=== PATIENT | male | born 1965 | race Caucasian/White ===

== ENCOUNTER 2017-08-17 10:25 | Emergency (ER) | payer BC, MEDICAID, OTHER ==
--- NOTE | 2017-08-17 11:46 | EDM.PDOC ---
ED HPI GENERAL MEDICAL PROBLEM - General Chief Complaint: Eye Problems Stated Complaint: RT EYE Time Seen by Provider: 08/17/17 10:25 Source of Information: Reports: Patient History Limitations: Reports: No Limitations - History of Present Illness INITIAL COMMENTS - FREE TEXT/NARRATIVE: 52 y.o.w.m in prev healthy condition, came to the ED thsi am because he has right eye discomfort since last night when he cleaned his truck out. He attemted to flush it and he saw some blood in his right eye. He does not remember a direct trauma to his right eye. No N/V/D or any other acute medical issues. BP 138/89 Pulse 85 Temp 98.4 Pulse ox 94% RR 16. Onset Date: 08/16/17 Onset Time: 19:00 Duration: Hour(s): Location: Reports: Face Quality: Reports: Ache, Burning, Dull Severity: Mild Improves with: Reports: Rest Worsens with: Reports: Movement Context: Reports: Other (FB right eye.) Associated Symptoms: Reports: No Other Symptoms - Related Data Allergies Allergy/AdvReac Type Severity Reaction Status Date / Time ciprofloxacin [From Cipro] Allergy Cannot Verified 08/17/17 17:33 Remember ciprofloxacin HCl Allergy Cannot Verified 08/17/17 17:33 [From Cipro] Remember Home Meds: Home Meds Citalopram Hydrobromide [Celexa] 20 mg PO DAILY #30 tablet 04/26/14 [Rx] .Vitamin D 1.25 cap PO Q14D 08/17/17 [History] Amitriptyline [Elavil] 100 - 150 mg PO BEDTIME 08/17/17 [History] Gabapentin [Neurontin] 300 mg PO ASDIRECTED 08/17/17 [History] Gemfibrozil 600 mg PO BIDMEALS 08/17/17 [History] Hydrochlorothiazide 25 mg PO DAILY 08/17/17 [History] LORazepam 0.5 mg PO BID PRN 08/17/17 [History] Methocarbamol [Robaxin] 500 - 1,000 mg PO TID PRN 08/17/17 [History] QUEtiapine [SEROquel XR] 50 mg PO QID PRN 08/17/17 [History] QUEtiapine [SEROquel] 100 mg PO ASDIRECTED 08/17/17 [History] amLODIPine Besylate [Amlodipine Besylate] 10 mg PO DAILY 08/17/17 [History] atorvaSTATin [Lipitor] 40 mg PO DAILY 08/17/17 [History] busPIRone HCl [busPIRone] 30 mg PO DAILY 08/17/17 [History] hydrOXYzine Pamoate [Hydroxyzine Pamoate] 25 mg PO QID PRN 08/17/17 [History] Social & Family History - Tobacco Use Smoking Status *Q: Current Every Day Smoker Years of Tobacco use: 30 Packs/Tins Daily: 1 Used Tobacco, but Quit: No Second Hand Smoke Exposure: Yes - Alcohol Use Days Per Week of Alcohol Use: 0 - Recreational Drug Use Recreational Drug Use: No ED ROS ENT - Review of Systems Review Of Systems: See Below Constitutional: Reports: No Symptoms HEENT: Reports: Eye Pain (right eye) Respiratory: Reports: No Symptoms Cardiovascular: Reports: No Symptoms Endocrine: Reports: No Symptoms GI/Abdominal: Reports: No Symptoms : Reports: No Symptoms Musculoskeletal: Reports: No Symptoms Skin: Reports: No Symptoms Neurological: Reports: No Symptoms Psychiatric: Reports: No Symptoms Hematologic/Lymphatic: Reports: No Symptoms Immunologic: Reports: No Symptoms ED EXAM, ENT - Physical Exam Exam: See Below Exam Limited By: No Limitations General Appearance: Alert, WD/WN, Mild Distress, Obese Eye Exam: Right Eye: Other (Poss FB right eye. ), Bilateral Eye: EOMI Ears: Normal External Exam, Normal Canal Nose: Normal Inspection, Normal Mucousa, No Blood Mouth/Throat: Normal Inspection, Normal Gums Head: Atraumatic, Normocephalic Neck: Normal Inspection, Supple, Non-Tender, Full Range of Motion Respiratory/Chest: No Respiratory Distress, Lungs Clear Cardiovascular: Normal Peripheral Pulses, Regular Rate, Rhythm, No Edema GI/Abdominal: Normal Bowel Sounds, Soft (Male) Exam: Deferred Rectal (Males) Exam: Deferred Back: Normal Inspection, Full Range of Motion Extremities: Normal Inspection, Normal Range of Motion, Non-Tender Neurological: Alert, Oriented, CN II-XII Intact, Normal Cognition, Normal Gait, No Motor/Sensory Deficits Psychiatric: Normal Affect, Normal Mood Skin: Warm, Dry, Intact, Normal Color, No Rash Lymphatic: No Adenopathy Course - Vital Signs Text/Narrative:: 52 y.o.w.m in prev healthy condition, came to the ED thsi am because he has right eye discomfort since last night when he cleaned his truck out. He attemted to flush it and he saw some blood in his right eye. He does not remember a direct trauma to his right eye. No N/V/D or any other acute medical issues. BP 138/89 Pulse 85 Temp 98.4 Pulse ox 94% RR 16. PE: Right eye pain Procedure: Tetracaine [address] the right eye, a[place] blue light did not show a corneal abrasion, no FB was seen. However, there was a small abrasion at his right lower eyelid. Impression: right eye pain, can not R/O FB. minor abrasion right lower eye lid, interior Reexam: Pain subsided after tetracaine, pain came back. Ophthalmology was consulted and the pt was advised to F/U right away at the eye clinic Plan: D/C with instruction . Last Recorded V/S: Last Vital Signs Temp 36.9 C 08/17/17 11:00 Pulse 85 08/17/17 11:00 Resp 16 08/17/17 11:00 BP 138/89 08/17/17 11:00 Pulse Ox 94 L 08/17/17 11:00 Departure - Departure Time of Disposition: 12:00 Disposition: Home, Self-Care 01 Condition: Good Clinical Impression: FB eye - Discharge Information Referrals: Damion Gao MD [Primary Care Provider] - Forms: ED Department Discharge Additional Instructions: Please go straight to [facility] at [address] tel . Please come back should any complication occur.
== END 2017-08-17 11:55 | disposition home or self-care (01) ==
LOC: FB.ED 10:25
DX: S00.211A Abrasion of right eyelid and periocular area, initial encounter (principal); Z88.1 Allergy status to other antibiotic agents; Z79.899 Other long term (current) drug therapy; F17.210 Nicotine dependence, cigarettes, uncomplicated; X58.XXXA Exposure to other specified factors, initial encounter
CPT/HCPCS: 99283

== ENCOUNTER 2022-06-07 23:43 | Emergency (ER) | payer MEDICAID ==
[2022-06-07] MEDS ORDERED: Albuterol 8 GM Inhaler INH ONE (23:44)
[2022-06-08 00:46] LABS: ESTIMATED GFR 70 mL/min (>60)
[2022-06-08] MEDS ORDERED: Ondansetron 4 MG Tab.DIS PO ONE (01:52)
[2022-06-08] MEDS ORDERED: Albuterol/Ipratropium 3.0-0.5 MG/3 ML Neb Soln NEB ONE (01:52)
== END 2022-06-08 02:25 | disposition home or self-care (01) ==
LOC: FB.ED 23:43
DX: J20.9 Acute bronchitis, unspecified (principal); Z88.1 Allergy status to other antibiotic agents; Z79.899 Other long term (current) drug therapy
CPT/HCPCS: 36415; 71045; 80053; 83880; 84484; 85025; 85379; 93005; 94640; 99285; A9270; Q0162; 93010; 99283; J7620

== ENCOUNTER 2022-08-05 13:48 | Emergency (ER) | payer MEDICAID ==
[2022-08-05] MEDS: Nitroglycerin 0.4 MG Tab.SL SL PRN ×3 (14:11→14:21)
[2022-08-05 14:23] LABS: ESTIMATED GFR 70 mL/min (>60)
[2022-08-05] MEDS ORDERED: Aspirin 81 MG Tab.Chew PO ONE (14:32)
[2022-08-05] MEDS ORDERED: Ondansetron 4 MG/2 ML SDV IVPUSH ONE ×2 (14:40→15:50)
[2022-08-05] MEDS ORDERED: Ketorolac 30 MG/ML SDV IVPUSH STA (14:41)
[2022-08-05] MEDS: Sodium Chloride 0.9% 10 ML Syringe FLUSH PRN ×2 (14:53→15:01)
[2022-08-05] MEDS ORDERED: Heparin Sodium 5,000 Units/ML Vial IVPUSH ONE (15:11)
[2022-08-05] MEDS ORDERED: Heparin Sodium/0.45% NaCl 500 ML IV SCH (15:12)
[2022-08-05] MEDS ORDERED: Morphine 4 MG/ML VIAL IVPUSH ONE (15:37)
[2022-08-05] MEDS ORDERED: Iopamidol 755 Mg/ML 100 ML Bottle IV ONE (15:43)
== END 2022-08-05 16:05 ==
LOC: FB.ED 13:48
DX: J44.9 Chronic obstructive pulmonary disease, unspecified (principal); I71.40 Abdominal aortic aneurysm, without rupture, unspecified; I10 Essential (primary) hypertension; E78.5 Hyperlipidemia, unspecified; E78.00 Pure hypercholesterolemia, unspecified; E66.9 Obesity, unspecified; Z87.891 Personal history of nicotine dependence; Z88.1 Allergy status to other antibiotic agents; Z79.899 Other long term (current) drug therapy
CPT/HCPCS: 36415; 71045; 71275; 80053; 83880; 84484; 85025; 85379; 85610; 85730; 93005; 93010; 96365; 96375; 96376; 99285; 99285-25; A9270-GY; J1644; J1885; J2270; J2405; J3490; Q9967

== ENCOUNTER 2022-08-13 09:25 | Emergency (ER) | payer MEDICAID ==
[2022-08-13 10:21] LABS: ESTIMATED GFR 87 mL/min (>60)
[2022-08-13] MEDS ORDERED: Metoprolol Succinate 25 MG Tab.ER PO ONE (13:31)
[2022-08-13] MEDS ORDERED: ARIPiprazole 5 MG Tab PO ONE (16:48)
[2022-08-13] MEDS ORDERED: amLODIPine 5 MG Tab PO ONE (16:49)
[2022-08-13] MEDS ORDERED: Gabapentin 300 MG Cap PO ONE (16:49)
== END 2022-08-13 22:38 | disposition home or self-care (01) ==
LOC: FB.ED 09:25
DX: R41.0 Disorientation, unspecified (principal); E78.00 Pure hypercholesterolemia, unspecified; I10 Essential (primary) hypertension; E66.9 Obesity, unspecified; Z68.30 Body mass index [BMI] 30.0-30.9, adult; Z88.1 Allergy status to other antibiotic agents; Z79.899 Other long term (current) drug therapy
CPT/HCPCS: 36415; 70450; 71046; 80053; 80307; 83735; 83880; 84484; 85025; 93005; 99285; A9270-GY

== ENCOUNTER 2022-08-14 00:08 | Emergency (ER) | payer MEDICAID ==
[2022-08-14] MEDS ORDERED: LORazepam 0.5 MG Tab PO ONE (00:10)
[2022-08-14] MEDS ORDERED: OLANZapine 5 MG Tab PO ONE (00:10)
[2022-08-14] MEDS ORDERED: OLANZapine 5 MG Tab ONE (02:14)
== END 2022-08-14 09:35 ==
LOC: FB.ED 00:08
DX: F41.9 Anxiety disorder, unspecified (principal); E78.00 Pure hypercholesterolemia, unspecified; I10 Essential (primary) hypertension; E66.9 Obesity, unspecified; Z68.30 Body mass index [BMI] 30.0-30.9, adult; Z88.1 Allergy status to other antibiotic agents; Z79.899 Other long term (current) drug therapy
CPT/HCPCS: 99285; A9270

== ENCOUNTER 2023-06-20 08:02 | Inpatient (IN) | payer MEDICAID ==
[2023-06-20] MEDS ORDERED: Albuterol 6.7 GM Inhaler INH PRN (14:09)
[2023-06-20] MEDS ORDERED: Naloxone 4 MG Nasal Spray NAS PRN (14:09)
[2023-06-20] MEDS ORDERED: Polyethylene Glycol 3350 Powder 17 GM Packet PO PRN (14:09)
[2023-06-20] MEDS ORDERED: Nitroglycerin 0.4 MG Tab.SL SL PRN (14:09)
[2023-06-20] MEDS ORDERED: Sennosides/Docusate Sodium 50-8.6 MG Tab PO PRN (14:52)
[2023-06-20] MEDS ORDERED: Lidocaine 4% 1 each Patch TOP PRN (14:57)
[2023-06-20] MEDS: oxyCODONE 5 MG Tab PO PRN ×3 (15:00→21:07)
[2023-06-20] MEDS ORDERED: Lidocaine 4% 1 each Patch TOP SCH (15:00)
[2023-06-20] MEDS: Baclofen 10 MG Tab PO SCH ×2 (15:44→20:53)
[2023-06-20] MEDS: Pregabalin 100 MG Cap PO SCH ×2 (15:44→21:07)
[2023-06-20] MEDS: Acetaminophen 500 MG Tab PO PRN (15:47)
[2023-06-20] MEDS: busPIRone 15 MG Tab PO SCH (20:51)
[2023-06-20] MEDS: Amoxicillin/Clavulanate K 875-125 MG Tab PO SCH (20:51)
[2023-06-20] MEDS: levETIRAcetam 500 MG Tab PO SCH (20:52)
[2023-06-20] MEDS: Metoprolol Tartrate 25 MG Tab PO SCH (20:54)
[2023-06-20] MEDS: Melatonin 3 MG Tab PO SCH (20:57)
[2023-06-20] MEDS: Famotidine 20 MG Tab PO SCH (20:58)
[2023-06-21] MEDS: oxyCODONE 5 MG Tab PO PRN ×2 (02:15→18:09)
[2023-06-21] MEDS: Pantoprazole 40 MG Tab.CR PO SCH (05:55)
[2023-06-21] MEDS: Pregabalin 100 MG Cap PO SCH ×3 (09:06→20:29)
[2023-06-21] MEDS: Cyanocobalamin (Vitamin B12) 1,000 MCG Tab PO SCH (09:45)
[2023-06-21] MEDS: Cholecalciferol (Vitamin D3) 5,000 UNIT Cap PO SCH (09:45)
[2023-06-21] MEDS: Vitamin B Complex with Vitamin C Tab PO SCH (09:45)
[2023-06-21] MEDS: Famotidine 20 MG Tab PO SCH ×2 (09:46→20:31)
[2023-06-21] MEDS: Enoxaparin 40 MG/0.4 ML Syringe SUBCUT SCH (09:46)
[2023-06-21] MEDS: Metoprolol Tartrate 25 MG Tab PO SCH ×2 (09:46→20:31)
[2023-06-21] MEDS: Baclofen 10 MG Tab PO SCH ×3 (09:47→20:29)
[2023-06-21] MEDS: Citalopram 20 MG Tab PO SCH (09:47)
[2023-06-21] MEDS: busPIRone 15 MG Tab PO SCH ×2 (09:47→20:30)
[2023-06-21] MEDS: levETIRAcetam 500 MG Tab PO SCH ×2 (09:47→20:29)
[2023-06-21] MEDS: atorvaSTATin 40 MG Tab PO SCH (09:47)
[2023-06-21] MEDS: Aspirin 81 MG Tab.Chew PO SCH (09:48)
[2023-06-21] MEDS: Amoxicillin/Clavulanate K 875-125 MG Tab PO SCH ×2 (09:48→20:30)
[2023-06-21] MEDS: Acetaminophen 500 MG Tab PO PRN (15:58)
[2023-06-21] MEDS: Melatonin 3 MG Tab PO SCH (20:30)
[2023-06-22] MEDS: oxyCODONE 5 MG Tab PO PRN ×3 (00:13→19:17)
[2023-06-22] MEDS: Acetaminophen 500 MG Tab PO PRN (03:23)
[2023-06-22] MEDS: Pantoprazole 40 MG Tab.CR PO SCH (05:51)
[2023-06-22] MEDS: Pregabalin 100 MG Cap PO SCH ×3 (08:52→21:20)
[2023-06-22] MEDS: Amoxicillin/Clavulanate K 875-125 MG Tab PO SCH ×2 (08:53→21:15)
[2023-06-22] MEDS: Aspirin 81 MG Tab.Chew PO SCH (08:53)
[2023-06-22] MEDS: busPIRone 15 MG Tab PO SCH ×2 (08:53→21:17)
[2023-06-22] MEDS: Citalopram 20 MG Tab PO SCH (08:53)
[2023-06-22] MEDS: Metoprolol Tartrate 25 MG Tab PO SCH ×2 (08:54→21:16)
[2023-06-22] MEDS: levETIRAcetam 500 MG Tab PO SCH ×2 (08:54→21:17)
[2023-06-22] MEDS: Baclofen 10 MG Tab PO SCH ×3 (08:54→21:17)
[2023-06-22] MEDS: atorvaSTATin 40 MG Tab PO SCH (08:54)
[2023-06-22] MEDS: Famotidine 20 MG Tab PO SCH ×2 (08:55→21:16)
[2023-06-22] MEDS: Vitamin B Complex with Vitamin C Tab PO SCH (08:55)
[2023-06-22] MEDS: Enoxaparin 40 MG/0.4 ML Syringe SUBCUT SCH (08:55)
[2023-06-22] MEDS: Cholecalciferol (Vitamin D3) 5,000 UNIT Cap PO SCH (08:56)
[2023-06-22] MEDS: Cyanocobalamin (Vitamin B12) 1,000 MCG Tab PO SCH (08:56)
[2023-06-22] MEDS: traZODone 50 MG Tab PO SCH (21:16)
[2023-06-22] MEDS: QUEtiapine 100 MG Tab PO SCH (21:16)
[2023-06-22] MEDS: Melatonin 3 MG Tab PO SCH (21:17)
[2023-06-23] MEDS: Pantoprazole 40 MG Tab.CR PO SCH (06:06)
[2023-06-23] MEDS: Pregabalin 100 MG Cap PO SCH ×3 (08:41→21:09)
[2023-06-23] MEDS: oxyCODONE 5 MG Tab PO PRN ×4 (08:41→21:08)
[2023-06-23] MEDS: Amoxicillin/Clavulanate K 875-125 MG Tab PO SCH ×2 (08:43→21:09)
[2023-06-23] MEDS: Metoprolol Tartrate 25 MG Tab PO SCH ×2 (08:43→21:13)
[2023-06-23] MEDS: Famotidine 20 MG Tab PO SCH ×2 (08:44→21:11)
[2023-06-23] MEDS: Cyanocobalamin (Vitamin B12) 1,000 MCG Tab PO SCH (08:44)
[2023-06-23] MEDS: Cholecalciferol (Vitamin D3) 5,000 UNIT Cap PO SCH (08:44)
[2023-06-23] MEDS: Citalopram 20 MG Tab PO SCH (08:45)
[2023-06-23] MEDS: atorvaSTATin 40 MG Tab PO SCH (08:45)
[2023-06-23] MEDS: levETIRAcetam 500 MG Tab PO SCH ×2 (08:45→21:10)
[2023-06-23] MEDS: Baclofen 10 MG Tab PO SCH ×3 (08:45→21:10)
[2023-06-23] MEDS: busPIRone 15 MG Tab PO SCH ×2 (08:45→21:10)
[2023-06-23] MEDS: Vitamin B Complex with Vitamin C Tab PO SCH (08:45)
[2023-06-23] MEDS: Aspirin 81 MG Tab.Chew PO SCH (08:46)
[2023-06-23] MEDS: Enoxaparin 40 MG/0.4 ML Syringe SUBCUT SCH (08:46)
[2023-06-23] MEDS: Melatonin 3 MG Tab PO SCH (21:11)
[2023-06-23] MEDS: QUEtiapine 100 MG Tab PO SCH (21:12)
[2023-06-23] MEDS: traZODone 50 MG Tab PO SCH (21:12)
[2023-06-24] MEDS: oxyCODONE 5 MG Tab PO PRN ×4 (02:18→19:35)
[2023-06-24] MEDS: Pantoprazole 40 MG Tab.CR PO SCH (06:54)
[2023-06-24] MEDS: Aspirin 81 MG Tab.Chew PO SCH (08:49)
[2023-06-24] MEDS: Pregabalin 100 MG Cap PO SCH ×3 (08:49→20:44)
[2023-06-24] MEDS: busPIRone 15 MG Tab PO SCH ×2 (08:50→20:44)
[2023-06-24] MEDS: levETIRAcetam 500 MG Tab PO SCH ×2 (08:50→20:44)
[2023-06-24] MEDS: Citalopram 20 MG Tab PO SCH (08:50)
[2023-06-24] MEDS: Metoprolol Tartrate 25 MG Tab PO SCH ×2 (08:51→20:45)
[2023-06-24] MEDS: Baclofen 10 MG Tab PO SCH ×3 (08:51→20:44)
[2023-06-24] MEDS: atorvaSTATin 40 MG Tab PO SCH (08:51)
[2023-06-24] MEDS: Enoxaparin 40 MG/0.4 ML Syringe SUBCUT SCH (08:52)
[2023-06-24] MEDS: Famotidine 20 MG Tab PO SCH ×2 (08:52→20:44)
[2023-06-24] MEDS: Vitamin B Complex with Vitamin C Tab PO SCH (08:53)
[2023-06-24] MEDS: Cholecalciferol (Vitamin D3) 5,000 UNIT Cap PO SCH (08:54)
[2023-06-24] MEDS: Cyanocobalamin (Vitamin B12) 1,000 MCG Tab PO SCH (08:54)
[2023-06-24] MEDS: Acetaminophen 500 MG Tab PO PRN (13:02)
[2023-06-24] MEDS: Melatonin 3 MG Tab PO SCH (20:44)
[2023-06-24] MEDS: traZODone 50 MG Tab PO SCH (20:44)
[2023-06-24] MEDS: QUEtiapine 100 MG Tab PO SCH (20:44)
[2023-06-25] MEDS: oxyCODONE 5 MG Tab PO PRN ×4 (00:43→18:14)
[2023-06-25] MEDS: Pantoprazole 40 MG Tab.CR PO SCH (06:54)
[2023-06-25] MEDS: Aspirin 81 MG Tab.Chew PO SCH (09:13)
[2023-06-25] MEDS: Pregabalin 100 MG Cap PO SCH ×3 (09:13→20:54)
[2023-06-25] MEDS: busPIRone 15 MG Tab PO SCH ×2 (09:14→20:56)
[2023-06-25] MEDS: Citalopram 20 MG Tab PO SCH (09:14)
[2023-06-25] MEDS: levETIRAcetam 500 MG Tab PO SCH ×2 (09:15→20:56)
[2023-06-25] MEDS: atorvaSTATin 40 MG Tab PO SCH (09:16)
[2023-06-25] MEDS: Baclofen 10 MG Tab PO SCH ×3 (09:16→20:55)
[2023-06-25] MEDS: Metoprolol Tartrate 25 MG Tab PO SCH ×2 (09:16→20:55)
[2023-06-25] MEDS: Famotidine 20 MG Tab PO SCH ×2 (09:17→20:55)
[2023-06-25] MEDS: Vitamin B Complex with Vitamin C Tab PO SCH (09:17)
[2023-06-25] MEDS: Enoxaparin 40 MG/0.4 ML Syringe SUBCUT SCH (09:17)
[2023-06-25] MEDS: Cyanocobalamin (Vitamin B12) 1,000 MCG Tab PO SCH (09:18)
[2023-06-25] MEDS: Cholecalciferol (Vitamin D3) 5,000 UNIT Cap PO SCH (09:18)
[2023-06-25] MEDS: QUEtiapine 100 MG Tab PO SCH (20:56)
[2023-06-25] MEDS: Melatonin 3 MG Tab PO SCH (20:56)
[2023-06-25] MEDS: traZODone 50 MG Tab PO SCH (20:56)
[2023-06-26] MEDS: oxyCODONE 5 MG Tab PO PRN ×3 (00:44→13:04)
[2023-06-26] MEDS: Pantoprazole 40 MG Tab.CR PO SCH (07:34)
[2023-06-26] MEDS: Pregabalin 100 MG Cap PO SCH ×3 (08:45→21:52)
[2023-06-26] MEDS: busPIRone 15 MG Tab PO SCH ×2 (08:45→21:52)
[2023-06-26] MEDS: Aspirin 81 MG Tab.Chew PO SCH (08:45)
[2023-06-26] MEDS: Baclofen 10 MG Tab PO SCH ×3 (08:46→21:54)
[2023-06-26] MEDS: Citalopram 20 MG Tab PO SCH (08:46)
[2023-06-26] MEDS: levETIRAcetam 500 MG Tab PO SCH ×2 (08:46→21:53)
[2023-06-26] MEDS: atorvaSTATin 40 MG Tab PO SCH (08:46)
[2023-06-26] MEDS: Metoprolol Tartrate 25 MG Tab PO SCH ×2 (08:51→21:53)
[2023-06-26] MEDS: Vitamin B Complex with Vitamin C Tab PO SCH (08:53)
[2023-06-26] MEDS: Cyanocobalamin (Vitamin B12) 1,000 MCG Tab PO SCH (08:53)
[2023-06-26] MEDS: Enoxaparin 40 MG/0.4 ML Syringe SUBCUT SCH (08:53)
[2023-06-26] MEDS: Famotidine 20 MG Tab PO SCH ×2 (08:53→21:52)
[2023-06-26] MEDS: Cholecalciferol (Vitamin D3) 5,000 UNIT Cap PO SCH (08:53)
[2023-06-26] MEDS: Acetaminophen 500 MG Tab PO PRN (15:24)
[2023-06-26] MEDS: Melatonin 3 MG Tab PO SCH (21:53)
[2023-06-26] MEDS: QUEtiapine 100 MG Tab PO SCH (21:54)
[2023-06-26] MEDS: traZODone 50 MG Tab PO SCH (21:54)
[2023-06-27] MEDS: Pantoprazole 40 MG Tab.CR PO SCH (06:59)
[2023-06-27] MEDS: Aspirin 81 MG Tab.Chew PO SCH (08:27)
[2023-06-27] MEDS: Citalopram 20 MG Tab PO SCH (08:28)
[2023-06-27] MEDS: Cyanocobalamin (Vitamin B12) 1,000 MCG Tab PO SCH (08:28)
[2023-06-27] MEDS: levETIRAcetam 500 MG Tab PO SCH ×2 (08:28→20:41)
[2023-06-27] MEDS: Famotidine 20 MG Tab PO SCH ×2 (08:28→20:42)
[2023-06-27] MEDS: busPIRone 15 MG Tab PO SCH ×2 (08:28→20:40)
[2023-06-27] MEDS: Cholecalciferol (Vitamin D3) 5,000 UNIT Cap PO SCH (08:28)
[2023-06-27] MEDS: atorvaSTATin 40 MG Tab PO SCH (08:29)
[2023-06-27] MEDS: Baclofen 10 MG Tab PO SCH ×3 (08:29→20:41)
[2023-06-27] MEDS: Vitamin B Complex with Vitamin C Tab PO SCH (08:33)
[2023-06-27] MEDS: Pregabalin 100 MG Cap PO SCH ×3 (08:33→20:46)
[2023-06-27] MEDS: Metoprolol Tartrate 25 MG Tab PO SCH ×2 (08:33→20:47)
[2023-06-27] MEDS: Enoxaparin 40 MG/0.4 ML Syringe SUBCUT SCH (08:34)
[2023-06-27] MEDS: Acetaminophen 500 MG Tab PO PRN (14:50)
[2023-06-27] MEDS: Melatonin 3 MG Tab PO SCH (20:42)
[2023-06-27] MEDS: QUEtiapine 100 MG Tab PO SCH (20:42)
[2023-06-27] MEDS: traZODone 50 MG Tab PO SCH (20:43)
[2023-06-28] MEDS: oxyCODONE 5 MG Tab PO PRN ×6 (01:18→22:18)
[2023-06-28] MEDS: Pantoprazole 40 MG Tab.CR PO SCH (06:45)
[2023-06-28] MEDS: busPIRone 15 MG Tab PO SCH ×2 (08:56→22:04)
[2023-06-28] MEDS: Aspirin 325 MG Tab.EC PO SCH (08:56)
[2023-06-28] MEDS: Pregabalin 100 MG Cap PO SCH ×3 (08:56→22:14)
[2023-06-28] MEDS: Citalopram 20 MG Tab PO SCH (08:56)
[2023-06-28] MEDS: levETIRAcetam 500 MG Tab PO SCH ×2 (08:57→22:02)
[2023-06-28] MEDS: Baclofen 10 MG Tab PO SCH ×3 (08:57→22:01)
[2023-06-28] MEDS: atorvaSTATin 40 MG Tab PO SCH (08:57)
[2023-06-28] MEDS: Famotidine 20 MG Tab PO SCH ×2 (08:58→22:04)
[2023-06-28] MEDS: Vitamin B Complex with Vitamin C Tab PO SCH (08:58)
[2023-06-28] MEDS: Cholecalciferol (Vitamin D3) 5,000 UNIT Cap PO SCH (08:58)
[2023-06-28] MEDS: Cyanocobalamin (Vitamin B12) 1,000 MCG Tab PO SCH (08:58)
[2023-06-28] MEDS: Metoprolol Tartrate 25 MG Tab PO SCH ×2 (09:02→22:01)
[2023-06-28] MEDS: Acetaminophen 500 MG Tab PO SCH ×3 (10:21→22:03)
[2023-06-28] MEDS: Melatonin 3 MG Tab PO SCH (22:02)
[2023-06-28] MEDS: QUEtiapine 100 MG Tab PO SCH (22:03)
[2023-06-28] MEDS: traZODone 50 MG Tab PO SCH (22:03)
[2023-06-29] MEDS: oxyCODONE 5 MG Tab PO PRN ×4 (04:37→21:33)
[2023-06-29] MEDS: Pantoprazole 40 MG Tab.CR PO SCH (06:02)
[2023-06-29] MEDS: Citalopram 20 MG Tab PO SCH (09:45)
[2023-06-29] MEDS: busPIRone 15 MG Tab PO SCH ×2 (09:45→21:29)
[2023-06-29] MEDS: Baclofen 10 MG Tab PO SCH ×3 (09:46→21:30)
[2023-06-29] MEDS: Aspirin 325 MG Tab.EC PO SCH (09:46)
[2023-06-29] MEDS: levETIRAcetam 500 MG Tab PO SCH ×2 (09:46→21:29)
[2023-06-29] MEDS: atorvaSTATin 40 MG Tab PO SCH (09:46)
[2023-06-29] MEDS: Famotidine 20 MG Tab PO SCH ×2 (09:47→21:31)
[2023-06-29] MEDS: Acetaminophen 500 MG Tab PO SCH ×3 (09:48→21:32)
[2023-06-29] MEDS: Cholecalciferol (Vitamin D3) 5,000 UNIT Cap PO SCH (09:48)
[2023-06-29] MEDS: Cyanocobalamin (Vitamin B12) 1,000 MCG Tab PO SCH (09:48)
[2023-06-29] MEDS: Vitamin B Complex with Vitamin C Tab PO SCH (09:48)
[2023-06-29] MEDS: Metoprolol Tartrate 25 MG Tab PO SCH ×2 (09:53→21:30)
[2023-06-29] MEDS: Pregabalin 100 MG Cap PO SCH ×3 (09:58→21:31)
[2023-06-29] MEDS: Melatonin 3 MG Tab PO SCH (21:31)
[2023-06-29] MEDS: QUEtiapine 100 MG Tab PO SCH (21:31)
[2023-06-29] MEDS: traZODone 50 MG Tab PO SCH (21:32)
[2023-06-30] MEDS: Pantoprazole 40 MG Tab.CR PO SCH (05:24)
[2023-06-30] MEDS: oxyCODONE 5 MG Tab PO PRN ×2 (07:57→14:47)
[2023-06-30] MEDS: Pregabalin 100 MG Cap PO SCH ×2 (07:59→14:50)
[2023-06-30] MEDS: Famotidine 20 MG Tab PO SCH (08:00)
[2023-06-30] MEDS: Aspirin 325 MG Tab.EC PO SCH (08:00)
[2023-06-30] MEDS: Baclofen 10 MG Tab PO SCH ×2 (08:00→14:48)
[2023-06-30] MEDS: levETIRAcetam 500 MG Tab PO SCH (08:00)
[2023-06-30] MEDS: Citalopram 20 MG Tab PO SCH (08:00)
[2023-06-30] MEDS: busPIRone 15 MG Tab PO SCH (08:00)
[2023-06-30] MEDS: Cyanocobalamin (Vitamin B12) 1,000 MCG Tab PO SCH (08:01)
[2023-06-30] MEDS: atorvaSTATin 40 MG Tab PO SCH (08:01)
[2023-06-30] MEDS: Metoprolol Tartrate 25 MG Tab PO SCH (08:01)
[2023-06-30] MEDS: Acetaminophen 500 MG Tab PO SCH ×2 (08:01→14:48)
[2023-06-30] MEDS: Cholecalciferol (Vitamin D3) 5,000 UNIT Cap PO SCH (08:01)
[2023-06-30] MEDS: Vitamin B Complex with Vitamin C Tab PO SCH (08:01)
== END 2023-06-30 16:30 | disposition home health service (06) | DRG 561 ==
LOC: FB.MS 11:40
PROVIDERS: ADMIT Family Medicine; ATTEND Family Medicine
DX: S82.851D Displaced trimalleolar fracture of right lower leg, subsequent encounter for closed fracture with routine healing (principal); F31.9 Bipolar disorder, unspecified; F10.10 Alcohol abuse, uncomplicated; I10 Essential (primary) hypertension; S82.142D Displaced bicondylar fracture of left tibia, subsequent encounter for closed fracture with routine healing; G89.4 Chronic pain syndrome; S32.030D Wedge compression fracture of third lumbar vertebra, subsequent encounter for fracture with routine healing; E88.810 Metabolic syndrome; F41.9 Anxiety disorder, unspecified; J44.9 Chronic obstructive pulmonary disease, unspecified; E78.5 Hyperlipidemia, unspecified; E78.00 Pure hypercholesterolemia, unspecified; E11.9 Type 2 diabetes mellitus without complications; E66.9 Obesity, unspecified; G47.00 Insomnia, unspecified; I25.10 Atherosclerotic heart disease of native coronary artery without angina pectoris; Z79.51 Long term (current) use of inhaled steroids; Z79.82 Long term (current) use of aspirin; Z98.890 Other specified postprocedural states; Z79.899 Other long term (current) drug therapy; Z88.8 Allergy status to other drugs, medicaments and biological substances; Z87.891 Personal history of nicotine dependence
CPT/HCPCS: 97110-GP; 97161-GP; 97165-GO; 97530-GO; 97530-GP; 97535-GO; A9270-GY; J1650

== ENCOUNTER 2023-07-14 10:22 | Emergency (ER) | payer MEDICAID ==
[2023-07-14] MEDS: Sodium Chloride 0.9% 10 ML Syringe FLUSH PRN (10:56)
[2023-07-14 11:01] LABS: BASOPHILS PERCENT AUTO 0.5 % (0.3-3.8); EOSINOPHILS PERCENT AUTO 0.1 % (0.1-6.8); HEMATOCRIT 37.2 % (38.3-50.1); HEMOGLOBIN 12.6 g/dL (12.9-17.7); LYMPHOCYTES ABSOLUTE AUTO 0.9 x10-3/uL (0.5-4.5); LYMPHOCYTES PERCENT AUTO 13.5 % (15.8-45.3); MEAN CORPUSCULAR HEMOGLOBIN 29.4 pg (27.0-33.3); MEAN CORPUSCULAR HGB CONC 33.9 g/dL (28.7-35.3); MEAN CORPUSCULAR VOLUME 86.8 fL (80.8-98.7); MEAN PLATELET VOLUME 7.7 fL (6.7-11.0); MONOCYTES ABSOLUTE AUTO 0.3 x10-3/uL (0.0-1.2); MONOCYTES PERCENT AUTO 5.1 % (5.5-15.2); NEUTROPHILS ABSOLUTE AUTO 5.4 x10-3/uL (1.7-6.9); NEUTROPHILS PERCENT AUTO 80.8 % (40.3-71.8); PLATELET COUNT,PLT 282 x10(3)uL (117-477); RED BLOOD CELL COUNT 4.29 x10(6)uL (3.90-5.90); WHITE BLOOD CELL COUNT,WBC 6.7 x10-3/uL (3.2-10.1)
[2023-07-14] MEDS: Morphine 2 MG/ML SYRINGE IVPUSH ONE (11:01)
[2023-07-14] MEDS: Ketorolac 30 MG/ML SDV IVPUSH ONE (11:01)
[2023-07-14 11:05] LABS: RED CELL DISTRIBUTION WIDTH 17.2 % (12.4-15.0)
[2023-07-14 11:08] LABS: BLOOD UREA NITROGEN,BUN 12 mg/dL (7-18); CALCIUM 9.7 mg/dL (8.6-10.2); CARBON DIOXIDE,CO2 24 mmol/L (21-32); CHLORIDE,CL 101 mmol/L (100-110); CREATININE 1.2 mg/dL (0.70-1.30); EST CRCL DRUG DOSING (CG) 63.33 mL/min; ESTIMATED GFR 69 mL/min (>60); GLUCOSE RANDOM 126 mg/dL (80-116); SODIUM,NA 139 mmol/L (135-145)
[2023-07-14 11:14] LABS: A/G RATIO 0.9; ALANINE AMINOTRANSFERASE,ALT 26 U/L (12-36); ALBUMIN 3.9 g/dL (3.2-4.6); ALKALINE PHOSPHATASE 209 IU/L (56-112); ASPARTATE AMNIOTRANSFERASE,AST 19 IU/L (5-25); BILIRUBIN TOTAL 0.9 mg/dL (0.1-1.3); PROTEIN TOTAL,TP 8.2 g/dL (6.0-8.0)
== END 2023-07-14 12:45 | disposition home or self-care (01) ==
LOC: FB.ED 10:22
DX: G89.18 Other acute postprocedural pain (principal); L97.319 Non-pressure chronic ulcer of right ankle with unspecified severity; I10 Essential (primary) hypertension; E78.00 Pure hypercholesterolemia, unspecified; E11.9 Type 2 diabetes mellitus without complications; Z79.82 Long term (current) use of aspirin; Z79.899 Other long term (current) drug therapy; Z88.1 Allergy status to other antibiotic agents
CPT/HCPCS: 36415; 73610-RT; 80053; 85025; 86140; 96374; 96375; 99284-25; J1885; J2270; J3490

== ENCOUNTER 2023-09-11 15:39 | Emergency (ER) | payer MEDICARE, MEDICAID | END 2023-09-11 16:55 | disposition home or self-care (01) | LOC: FB.ED 15:39 | DX: M25.471 Effusion, right ankle (principal); M25.571 Pain in right ankle and joints of right foot; I10 Essential (primary) hypertension; E78.00 Pure hypercholesterolemia, unspecified; E11.9 Type 2 diabetes mellitus without complications; Z88.1 Allergy status to other antibiotic agents; Z79.82 Long term (current) use of aspirin; Z79.51 Long term (current) use of inhaled steroids; Z79.899 Other long term (current) drug therapy; Z79.85 Long-term (current) use of injectable non-insulin antidiabetic drugs; Z87.891 Personal history of nicotine dependence | CPT/HCPCS: 99283 ==

== ENCOUNTER 2023-11-20 12:06 | Emergency (ER) | payer MEDICARE, MEDICAID ==
[2023-11-20] MEDS ORDERED: Sodium Chloride 0.9% 10 ML Syringe FLUSH PRN (12:16)
[2023-11-20 12:24] LABS: HEMATOCRIT 45.3 % (38.3-50.1); HEMOGLOBIN 14.1 g/dL (12.9-17.7); MEAN CORPUSCULAR HGB CONC 31.2 g/dL (28.7-35.3); MEAN CORPUSCULAR VOLUME 89.8 fL (80.8-98.7); MEAN PLATELET VOLUME 8.4 fL (6.7-11.0); PLATELET COUNT,PLT 516 x10(3)uL (117-477); RED BLOOD CELL COUNT 5.04 x10(6)uL (3.90-5.90); WHITE BLOOD CELL COUNT,WBC 18.5 x10-3/uL (3.2-10.1)
[2023-11-20 12:46] LABS: A/G RATIO 0.5; ALANINE AMINOTRANSFERASE,ALT 97 U/L (12-36); ALBUMIN 2.9 g/dL (3.2-4.6); ALKALINE PHOSPHATASE 128 IU/L (56-112); BILIRUBIN TOTAL 1.1 mg/dL (0.1-1.3); CALCIUM 11.3 mg/dL (8.6-10.2); CARBON DIOXIDE,CO2 24 mmol/L (21-32); ESTIMATED GFR 23 mL/min (>60); GLUCOSE RANDOM 211 mg/dL (80-116); POTASSIUM,K 4.7 mmol/L (3.5-5.3); PROTEIN TOTAL,TP 9.4 g/dL (6.0-8.0); SODIUM,NA 159 mmol/L (135-145)
[2023-11-20 12:50] LABS: ASPARTATE AMNIOTRANSFERASE,AST 173 IU/L (5-25); BLOOD UREA NITROGEN,BUN 105 mg/dL (7-18); CHLORIDE,CL 118 mmol/L (100-110)
[2023-11-20 12:56] LABS: BILIRUBIN,URINE SMALL (NEGATIVE); GLUCOSE,URINE NORMAL (NORMAL); KETONES,URINE 15 mg/dL (NEGATIVE); LEUKOCYTE ESTERASE,URINE NEGATIVE (NEGATIVE); NITRITE,URINE NEGATIVE (NEGATIVE); OCCULT BLOOD,URINE LARGE (NEGATIVE); PROTEIN,URINE 30 mg/dL (NEGATIVE); UROBILINOGEN,URINE NORMAL (NEGATIVE)
[2023-11-20] MEDS: Sodium Chloride 0.9% 1,000 ML IV SCH (13:12)
[2023-11-20 13:15] LABS: APPEARANCE,URINE CLEAR (CLEAR); BACTERIA,URINE OCCASIONAL (NS); COARSE GRANULAR CASTS,URINE MODERATE (NS); COLOR,URINE ORANGE (YELLOW); EPITHELIAL CELLS,URINE FEW; FINE GRANULAR CASTS,URINE MODERATE (NS); HYALINE CASTS,URINE MANY (NS); RBC,URINE 0-5 (0-5); WBC CASTS,URINE RARE (NS); WBC,URINE 0-5 (0-5)
[2023-11-20 13:16] LABS: MUCUS,URINE MODERATE (NS)
[2023-11-20 13:17] LABS: BAND PERCENT MAN 2 % (0-6); LYMPHOCYTES PERCENT MAN 5 % (13-37); MONOCYTES PERCENT MAN 6 % (4-12); SEG NEUTROPHILS PERCENT MAN 87 % (46-82)
[2023-11-20 13:18] LABS: INR 1.16 (1.00-1.24); LACTIC ACID 3.6 mmol/L (0.4-2.0); PTT,PARTIAL THROMBOPLSTIN TIME 25.6 SECONDS (24.4-33.2)
[2023-11-20 13:26] LABS: CREATINE KINASE,CK 3185 IU/L (60-160)
[2023-11-20] MEDS: Piperacillin/Tazobactam 4.5 GM in Sodium Chloride 0.9% 100 ML IV STA (14:13)
[2023-11-20] MEDS: VANCOmycin 1.5 GM/300 ML 1.5 GM in Premix Bag 1 BAG IV ONE (14:13)
[2023-11-20] MEDS: Sodium Chloride 0.45% 1,000 ML IV SCH (14:14)
[2023-11-20] MEDS ORDERED: Naloxone 0.4 MG/ML SDV IVPUSH PRN (14:57)
[2023-11-20] MEDS: Morphine 4 MG/ML VIAL IVPUSH ONE (15:09)
[2023-11-20] MEDS ORDERED: Heparin Sodium/0.45% NaCl 500 ML IV SCH (16:18)
[2023-11-20] MEDS ORDERED: Saccharomyces Boulardii (Probiotic) 250 MG Cap PO SCH (21:00)
[2023-11-21] MEDS: Heparin Sodium 5,000 Units/ML Vial IVPUSH ONE (07:49)
== END 2023-11-20 19:10 ==
LOC: FB.ED 12:06
DX: N17.9 Acute kidney failure, unspecified (principal); I24.9 Acute ischemic heart disease, unspecified; M62.82 Rhabdomyolysis; E86.0 Dehydration; I11.0 Hypertensive heart disease with heart failure; I50.9 Heart failure, unspecified; E78.00 Pure hypercholesterolemia, unspecified; E11.9 Type 2 diabetes mellitus without complications; E66.9 Obesity, unspecified; Z79.899 Other long term (current) drug therapy; Z79.82 Long term (current) use of aspirin; Z88.1 Allergy status to other antibiotic agents; W19.XXXA Unspecified fall, initial encounter
CPT/HCPCS: 36415; 51702; 70450; 71250; 72125; 72128; 72131; 73030; 73521; 73560; 80053; 81001; 82550; 83605; 83880; 84484; 85025; 85610; 85730; 93005; 96361; 96365; 96366; 96368; 96375; 99285; J2270; J2543; J3370; J3490; J7030; C1758

== ENCOUNTER 2023-12-27 08:29 | Emergency (ER) | payer MEDICARE, MEDICAID ==
[2023-12-27] MEDS: Sodium Chloride 0.9% 10 ML Syringe FLUSH PRN (08:50)
[2023-12-27] MEDS: Sodium Chloride 0.9% 1,000 ML IV ONE ×2 (08:57→10:00)
[2023-12-27 08:58] LABS: BASOPHILS PERCENT AUTO 0.1 % (0.3-3.8); EOSINOPHILS PERCENT AUTO 0.1 % (0.1-6.8); HEMATOCRIT 40.9 % (38.3-50.1); HEMOGLOBIN 13.2 g/dL (12.9-17.7); LYMPHOCYTES PERCENT AUTO 11.7 % (15.8-45.3); MEAN CORPUSCULAR HEMOGLOBIN 28.7 pg (27.0-33.3); MEAN CORPUSCULAR HGB CONC 32.3 g/dL (28.7-35.3); MEAN PLATELET VOLUME 8.1 fL (6.7-11.0); MONOCYTES ABSOLUTE AUTO 0.3 x10-3/uL (0.0-1.2); MONOCYTES PERCENT AUTO 3.3 % (5.5-15.2); NEUTROPHILS ABSOLUTE AUTO 7.4 x10-3/uL (1.7-6.9); NEUTROPHILS PERCENT AUTO 84.8 % (40.3-71.8); PLATELET COUNT,PLT 402 x10(3)uL (117-477); WHITE BLOOD CELL COUNT,WBC 8.7 x10-3/uL (3.2-10.1)
[2023-12-27 09:04] LABS: BLOOD UREA NITROGEN,BUN 17 mg/dL (7-18); BUN/CREATININE RATIO 14.2 (9-20); CALCIUM 9.9 mg/dL (8.6-10.2); CARBON DIOXIDE,CO2 21 mmol/L (21-32); CHLORIDE,CL 102 mmol/L (100-110); CREATININE 1.2 mg/dL (0.70-1.30); ESTIMATED GFR 69 mL/min (>60); GLUCOSE RANDOM 152 mg/dL (80-116); POTASSIUM,K 3.8 mmol/L (3.5-5.3); SODIUM,NA 140 mmol/L (135-145)
[2023-12-27 09:10] LABS: A/G RATIO 0.6; ALANINE AMINOTRANSFERASE,ALT 7 U/L (12-36); ALBUMIN 3.6 g/dL (3.2-4.6); ALKALINE PHOSPHATASE 153 IU/L (56-112); ASPARTATE AMNIOTRANSFERASE,AST 19 IU/L (5-25); BILIRUBIN TOTAL 0.6 mg/dL (0.1-1.3); CREATINE KINASE,CK 219 IU/L (60-160); PROTEIN TOTAL,TP 9.2 g/dL (6.0-8.0)
[2023-12-27 09:12] LABS: APPEARANCE,URINE CLOUDY (CLEAR); BILIRUBIN,URINE NEGATIVE (NEGATIVE); COLOR,URINE YELLOW (YELLOW); GLUCOSE,URINE NORMAL (NORMAL); KETONES,URINE 15 mg/dL (NEGATIVE); LEUKOCYTE ESTERASE,URINE NEGATIVE (NEGATIVE); NITRITE,URINE NEGATIVE (NEGATIVE); OCCULT BLOOD,URINE LARGE (NEGATIVE); PROTEIN,URINE TRACE mg/dL (NEGATIVE); RBC,URINE PACKED (0-5); UROBILINOGEN,URINE NORMAL (NEGATIVE); WBC,URINE 0-5 (0-5)
[2023-12-27 09:13] LABS: BACTERIA,URINE MODERATE (NS); SQUAMOUS EPITHELIAL CELLS,UR RARE (NS,R,O)
[2023-12-27 09:17] LABS: AMPHETAMINES SCREEN, URINE NEGATIVE (NEGATIVE); BARBITURATE SCREEN,URINE NEGATIVE (NEGATIVE); BENZODIAZEPINES SCREEN,URINE NEGATIVE (NEGATIVE); METHADONE SCREEN, URINE NEGATIVE (NEGATIVE); METHAMPHETAMINE SCREEN, URINE NEGATIVE (NEGATIVE); OXYCODONE SCREEN,URINE NEGATIVE (NEGATIVE); THC SCREEN,URINE POSITIVE (NEGATIVE)
[2023-12-27 09:18] LABS: BUPRENORPHINE SCREEN,URINE NEGATIVE (NEGATIVE)
[2023-12-27] MEDS: Naloxone 0.4 MG/ML SDV IVPUSH PRN (10:12)
[2023-12-27] MEDS ORDERED: Naloxone 0.4 MG/ML SDV IVPUSH PRN (10:30)
[2023-12-27] MEDS: LORazepam 2 MG/ML SDV IVPUSH ONE ×4 (11:48→14:46)
[2023-12-27] MEDS: Ondansetron 4 MG/2 ML SDV IVPUSH ONE (11:57)
== END 2023-12-27 14:35 ==
LOC: FB.ED 08:29
DX: R41.82 Altered mental status, unspecified (principal); I10 Essential (primary) hypertension; E78.00 Pure hypercholesterolemia, unspecified; E11.9 Type 2 diabetes mellitus without complications; E66.9 Obesity, unspecified; Z68.24 Body mass index [BMI] 24.0-24.9, adult; Z79.899 Other long term (current) drug therapy; Z79.82 Long term (current) use of aspirin; Z88.1 Allergy status to other antibiotic agents
CPT/HCPCS: 36415; 51702; 70450; 80053; 80307; 81001; 82550; 83605; 84484; 85025; 86140; 93005; 96361; 96374; 96375; 96376; 99285; J2060; J2310; J2405; J3490; J7030

== ENCOUNTER 2024-03-25 08:42 | Emergency (ER) | payer MEDICARE, MEDICAID ==
[2024-03-25] MEDS: Diphtheria,Pertussis(Acell),Tetanus Vaccine 0.5 ML Syringe IM ONE (09:59)
== END 2024-03-25 10:10 | disposition home or self-care (01) ==
LOC: FB.ED 08:42
DX: S01.81XA Laceration without foreign body of other part of head, initial encounter (principal); I10 Essential (primary) hypertension; E11.9 Type 2 diabetes mellitus without complications; E66.9 Obesity, unspecified; Z88.1 Allergy status to other antibiotic agents; Z68.20 Body mass index [BMI] 20.0-20.9, adult; Z23 Encounter for immunization; W19.XXXA Unspecified fall, initial encounter; Y92.000 Kitchen of unspecified non-institutional (private) residence as the place of occurrence of the external cause
CPT/HCPCS: 12002; 12013; 90471; 90715; 99283; 99283-25

== ENCOUNTER 2024-04-01 10:19 | Emergency (ER) | payer MEDICARE, MEDICAID, OTHER | END 2024-04-01 10:53 | disposition home or self-care (01) | LOC: FB.ED 10:19 | DX: S01.312A Laceration without foreign body of left ear, initial encounter (principal); I10 Essential (primary) hypertension; E11.9 Type 2 diabetes mellitus without complications; Z88.1 Allergy status to other antibiotic agents; V00.818A Other accident with wheelchair (powered), initial encounter | CPT/HCPCS: 99282 ==